=== PATIENT | female | born 1950 | race Two or more races ===

== ENCOUNTER 2021-10-13 08:15 | Outpatient (CLI) | payer MEDICARE | END 2021-10-13 23:59 | disposition home or self-care (01) | LOC: WOU 08:15 | PROVIDERS: ATTEND Surgery | DX: T85.79XD Infection and inflammatory reaction due to other internal prosthetic devices, implants and grafts, subsequent encounter (principal); Y79.8 Miscellaneous orthopedic devices associated with adverse incidents, not elsewhere classified | CPT/HCPCS: G0463 ==